=== PATIENT | male | born 1990 | race Caucasian/White ===

== ENCOUNTER → 2016-10-23 | Outpatient (CLI) | payer OTHER ==
--- NOTE | 2016-10-23 19:08 | REP ---
Clinical: Trauma. Crush injury. Technique: AP, lateral, bilateral oblique views of the left first digit. Findings: No acute fracture or dislocation is appreciated. There is a 5 mm radiodense foreign body in the subcutaneous tissues along the dorsal aspect of the thumb at the interphalangeal joint level. Impression: 1. No acute fracture or dislocation. 2. 5 mm foreign body in the subcutaneous tissues at the interphalangeal joint level. Signed by Erick Knott MD 10/23/2016 07:00 P
== END ==
LOC: M WUC 16:54
PROVIDERS: ATTEND Physician Assistant
DX: S67.02XA Crushing injury of left thumb, initial encounter (principal); S60.352A Superficial foreign body of left thumb, initial encounter; X58.XXXA Exposure to other specified factors, initial encounter; Y92.89 Other specified places as the place of occurrence of the external cause; Y93.89 Activity, other specified; Y99.8 Other external cause status